=== PATIENT | female | born 1940 | race Caucasian/White ===

== ENCOUNTER 2020-05-08 18:35 | Outpatient (CLI) | payer MEDICARE, OTHER ==
[2020-05-09 02:36] LABS: SARS-CoV-2 PCR by NAA Not Detected (NotDetected)
== END 2020-05-08 18:36 | disposition home or self-care (01) ==
LOC: LABBT 18:35
PROVIDERS: ATTEND Ophthalmology Retina Specialist
DX: Z01.812 Encounter for preprocedural laboratory examination (principal); Z20.822 Contact with and (suspected) exposure to COVID-19
CPT/HCPCS: U0003; U0005; 87635

== ENCOUNTER 2020-05-13 12:17 | Day surgery (SDC) | payer MEDICARE, OTHER ==
[2020-05-12 11:26] VITALS: BMI 19.2
[~2020-05-13 12:17] MED LIST: Bupivacaine PF 0.75% SDV 10 ML ONE; CEFAZOLIN 1 GM VIAL ONE; EPINEPHrine 0.3 MG in Ophthalmic Irrigation Solution 500 ML IRR SCH; Fentanyl 100 MCG/2 ML VIAL ONE; Lidocaine 1% PF 5 ML VIAL ONE; Lidocaine 4% PF 5 ML AMP ONE; Maxitrol 0.1% Opth Oint 3.5 GM TUBE ONE; PROPOFOL 200 MG/20 ML VIAL ONE; Triamcinolone 40 MG/ML VIAL ONE
[2020-05-13] MEDS ORDERED: Phenylephrine 2.5% Ophth Soln 5 ML BOT ONE (12:37)
[2020-05-13] MEDS ORDERED: Cyclopentolate 1% Opth Drop 2 ML BOT ONE (12:37)
[2020-05-13] MEDS ORDERED: Cyclopentolate 1% Opth Drop 2 ML BOT FS SCH (12:45)
[2020-05-13] MEDS ORDERED: Phenylephrine 2.5% Ophth Soln 5 ML BOT FS SCH (12:45)
== END 2020-05-13 16:05 | disposition home or self-care (01) ==
LOC: SDC 12:17
PROVIDERS: ATTEND Ophthalmology Retina Specialist
PROC: 08T43ZZ Resection of Right Vitreous, Percutaneous Approach (ICD-10-PCS; principal; 2020-05-13)
PROC: 08QE3ZZ Repair Right Retina, Percutaneous Approach (ICD-10-PCS; 2020-05-13)
DX: H33.41 Traction detachment of retina, right eye (principal); E78.5 Hyperlipidemia, unspecified; G40.909 Epilepsy, unspecified, not intractable, without status epilepticus; G20 Parkinson's disease; Z79.899 Other long term (current) drug therapy; Z88.0 Allergy status to penicillin; Z88.5 Allergy status to narcotic agent; Z88.8 Allergy status to other drugs, medicaments and biological substances
CPT/HCPCS: C1814; J0171; J0690; J2704; J3010; J3301; J3490

== ENCOUNTER 2020-12-25 15:38 | Outpatient (CLI) | payer MEDICARE, OTHER ==
[2020-12-26 12:08] LABS: SARS-CoV-2 PCR by NAA Not Detected (NotDetected)
== END 2020-12-25 15:39 | disposition home or self-care (01) ==
LOC: LABBT 15:38
PROVIDERS: ATTEND Family Medicine
DX: Z01.812 Encounter for preprocedural laboratory examination (principal); H54.7 Unspecified visual loss; Z20.822 Contact with and (suspected) exposure to COVID-19
CPT/HCPCS: U0003; U0005

== ENCOUNTER 2020-12-30 07:28 | Day surgery (SDC) | payer MEDICARE, OTHER ==
[2020-12-29 11:14] VITALS: BMI 18.3
[~2020-12-30 07:28] MED LIST changes: -Bupivacaine PF 0.75% SDV 10 ML ONE; -CEFAZOLIN 1 GM VIAL ONE; -Fentanyl 100 MCG/2 ML VIAL ONE; -Lidocaine 1% PF 5 ML VIAL ONE; -Lidocaine 4% PF 5 ML AMP ONE; -Maxitrol 0.1% Opth Oint 3.5 GM TUBE ONE; -PROPOFOL 200 MG/20 ML VIAL ONE; -Triamcinolone 40 MG/ML VIAL ONE
[2020-12-30] MEDS ORDERED: Midazolam HCl 2 mg/2 ml Vial ONE (07:53)
[2020-12-30] MEDS ORDERED: Fentanyl 100 MCG/2 ML VIAL ONE (07:53)
[2020-12-30] MEDS ORDERED: Phenylephrine 2.5% Ophth Soln 5 ML BOT ONE (08:12)
[2020-12-30] MEDS ORDERED: Cyclopentolate 1% Opth Drop 2 ML BOT ONE (08:12)
[2020-12-30] MEDS ORDERED: Bupivacaine PF 0.75% SDV 10 ML ONE (09:52)
[2020-12-30] MEDS ORDERED: Maxitrol 0.1% Opth Oint 3.5 GM TUBE ONE (09:52)
[2020-12-30] MEDS ORDERED: CEFAZOLIN 1 GM VIAL ONE (09:52)
[2020-12-30] MEDS ORDERED: Indocyanine Green 25 MG/10 ML VIAL ONE (09:52)
[2020-12-30] MEDS ORDERED: Lidocaine 4% PF 5 ML AMP ONE (09:52)
[2020-12-30] MEDS ORDERED: PROPOFOL 200 MG/20 ML VIAL ONE (09:52)
[2020-12-30] MEDS ORDERED: Triamcinolone 40 MG/ML VIAL ONE (09:52)
[2020-12-30] MEDS ORDERED: Lidocaine 1% PF 5 ML VIAL ONE (09:52)
== END 2020-12-30 11:45 | disposition home or self-care (01) ==
LOC: SDC 07:28
PROVIDERS: ATTEND Ophthalmology Retina Specialist
PROC: 08T43ZZ Resection of Right Vitreous, Percutaneous Approach (ICD-10-PCS; principal; 2020-12-30)
PROC: 08NE3ZZ Release Right Retina, Percutaneous Approach (ICD-10-PCS; 2020-12-30)
DX: H35.371 Puckering of macula, right eye (principal); Z79.899 Other long term (current) drug therapy; Z88.0 Allergy status to penicillin; Z88.5 Allergy status to narcotic agent; Z88.8 Allergy status to other drugs, medicaments and biological substances; Z98.41 Cataract extraction status, right eye; Z96.1 Presence of intraocular lens
CPT/HCPCS: J0171; J0690; J2250; J2704; J3010; J3301; J3490